=== PATIENT | female | born 1950 | race Caucasian/White ===

== ENCOUNTER 2016-08-26 18:16 | Emergency (ER) | payer SELFPAY ==
[2016-08-26 18:27] VITALS: TEMP 99; BMI 34.7
[2016-08-26] MEDS ORDERED: IBUPROFEN 600 MG TAB PO ONE (20:00)
[2016-08-26] MEDS ORDERED: AMOXICILLIN 500 MG CAP PO ONE (20:00)
--- NOTE | 2016-08-26 20:00 | EDPRACDOC ---
- General Information Chief Complaint: Headache Stated Complaint: SINUS PRESSURE Time Seen by Provider: 08/26/16 19:36 Information Source: Patient Mode Of Arrival: Car Home Medications: Home Medications Lisinopril/Hydrochlorothiazide [Lisinopril-Hctz 20-25 mg Tab] 1 tab PO DAILY Metoprolol Tartrate [Lopressor] 25 mg PO BID 09/16/12 Aspirin [Aspirin EC] 81 mg PO DAILY 12/30/13 Levothyroxine Sodium [Synthroid] 100 mcg PO DAILY 04/30/14 Lovastatin [Mevacor] 20 mg PO HS 04/30/14 Guaifenesin/Dextromethorphan [Coricidin Hbp Softgel] 1 each PO .PRN PRN Ondansetron HCl [Zofran] 4 mg PO Q6H PRN #12 tab 06/07/16 Promethazine [Phenergan] 25 mg PO Q8H PRN #15 tab 06/07/16 Sulfamethoxazole/Trimethoprim [Bactrim Ds Tablet] 1 tab PO BID #10 tab 06/07/16 Amoxicillin Trihydrate [Amoxicillin] 500 mg PO TID #30 tab 08/26/16 Ibuprofen 600 mg PO TID #20 tablet 08/26/16 Allergies/Adverse Reactions: Allergies Allergy/AdvReac Type Severity Reaction Status Date / Time No Known Allergies Allergy Verified 06/07/16 15:51 - History of Present Illness Onset: 5 days HPI: PT PRESENTS TODAY WITH [place], SINUS PRESSURE AND CONGESTION X 1 WEEK. NOTED LOW GRADE FEVER HERE. DENIES NECK PAIN, DIZZINESS, CP, SHOB, ABD PAIN, N/V/D. PCP COULDN'T SEE FOR ANOTHER 2 WEEKS. Current Symptoms: Reports: Fever, Headache, Nasal Symptoms Shortness of Breath: None Rhinorrhea: Reports: Green Ear Symptoms: Reports: None Fever Severity/Quality: Reports: subjective, low grade Oral Intake: Normal Urinary Output: Normal Relevant History of: None Associated Signs & Symptoms:: Reports: Fever, Headache, Nasal Symptoms ED Past Medical History - History Reviewed Yes Nurses notes reviewed and agree except as marked - Patient Medical History Cardiac History: Reports: Hypertension, Hypercholesterolemia Psychological History: Denies: Depression Systemic History: Denies: Cancer Surgical History: Reports: Cholecystectomy - Social Medical History Smoking Status: Former smoker EDM Review of Systems - Review of Systems ROS Negative Except as Marked: Yes All systems reviewed and were negative except as marked Constitutional: Fever Eyes: No Symptoms Reported Ears: No Symptoms Reported Throat: No Symptoms Reported Nose: Congestion Mouth: No Symptoms Reported Respiratory: No Symptoms Reported Cardiovascular: No Symptoms Reported Gastrointestinal: No Symptoms Reported Neurological: Headache Musculoskeletal: No Symptoms Reported Integumentary: No Symptoms Reported - Physical Exam Constitutional: Alert (Awake), No apparent distress Oriented to: Time, Person, Place Last recorded Vital Signs: Last Vital Signs Temp 99.0 F 08/26/16 18:25 Pulse 66 08/26/16 18:25 Resp 20 08/26/16 18:25 BP 182/91 H 08/26/16 18:25 Pulse Ox 96 08/26/16 18:25 Oxygen Pulse Oxygen Saturation 96 O2 Device Room Air Oxygen Flow Rate Fraction of Inspired Oxygen ( FIO2) - HEENT Head: Tender Eye Exam: Normal Oropharynx: Normal Tympanic Membrane: Normal ENT EAC: Normal Nose: Congestion Neck: Normal, Denies Pain, Midline - Respiratory/Cardiovascular Respiratory: Normal - CTA Cardiovascular: Normal - GI Palpation: Normal Tenderness: Non tender - Musculoskeletal Back: Normal Extremities: Normal - Integumentary Skin: Normal Lymphatics: Normal - Neurologic Mood Description: Normal Thought: Coherent Perception: Normal Decision Time to Discharge: 19:59 - Departure Disposition: Home Condition: Good Final Diagnosis: Sinusitis Qualifiers: Sinusitis location: unspecified location Chronicity: acute Recurrence: not specified as recurrent Qualified Code(s): J01.90 - Acute sinusitis, unspecified Instructions: Sinusitis (ED) Education/Counseling Given To: Patient Education/Counseling Given Regarding: Diagnosis, Treatment, Follow Up Referrals: None,No Provider [Primary Care Provider] - One Week Prescriptions: New Amoxicillin Trihydrate [Amoxicillin] 500 mg PO TID #30 tab Ibuprofen 600 mg PO TID #20 tablet No Action Metoprolol Tartrate [Lopressor] 25 mg PO BID Lisinopril/Hydrochlorothiazide [Lisinopril-Hctz 20-25 mg Tab] 1 tab PO DAILY Aspirin [Aspirin EC] 81 mg PO DAILY Lovastatin [Mevacor] 20 mg PO HS Levothyroxine Sodium [Synthroid] 100 mcg PO DAILY Guaifenesin/Dextromethorphan [Coricidin Hbp Softgel] 1 each PO .PRN PRN PRN Reason: COLD SYMPTOMS Ondansetron HCl [Zofran] 4 mg PO Q6H PRN #12 tab PRN Reason: Nausea/Vomiting Sulfamethoxazole/Trimethoprim [Bactrim Ds Tablet] 1 tab PO BID #10 tab Promethazine [Phenergan] 25 mg PO Q8H PRN #15 tab PRN Reason: Nausea/Vomiting Additional Instructions: AFRIN OTC NEEDED FOR ADDITIONAL RELIEF. FOLLOW UP WITH PCP IN 2-3 DAYS IF NEEDED.
[2016-08-26 20:14] VITALS: BP 166/87; PULSE 74
== END 2016-08-26 20:09 | disposition home or self-care (01) ==
LOC: EDMC 18:16
DX: J01.90 Acute sinusitis, unspecified (principal); I10 Essential (primary) hypertension; E78.00 Pure hypercholesterolemia, unspecified; Z79.899 Other long term (current) drug therapy; Z79.82 Long term (current) use of aspirin
CPT/HCPCS: 99282; J3490